=== PATIENT | female | born 1995 | race African-American/Black ===

== ENCOUNTER 2017-03-16 04:15 | Inpatient (IN) | payer OTHER ==
[2017-03-16] MEDS ORDERED: DEXTROSE 5%-LACTATED RINGERS 500 ML IV SCH (06:00)
[2017-03-16] MEDS ORDERED: DEXTROSE 5%-LACTATED RINGERS 1,000 ML IV SCH (07:00)
[2017-03-16] MEDS ORDERED: PROMETHAZINE HCL 25 MG/1 ML VIAL IVPUSH ONE (07:10)
[2017-03-16] MEDS ORDERED: BUTORPHANOL TARTRATE 1 MG/ML VIAL IVPB ONE (07:10)
[2017-03-16] MEDS: ELECTROLYTE-148 SOLN 1,000 ML IV SCH ×3 (07:15→23:20)
--- NOTE | 2017-03-16 07:51 | HP ---
Past Medical History - Primary Care Physician PCP:: Marvin Jeffers - Admission Chief Complaint: 22 yo P0 @ 39.5wks with regular contractions since 8pm 03/15/17 , no VB, no LOF, + FM; She had 3min FHR deceleration when evaluated in triage. History of Present Illness: 1. Late registrant to [facility], but had firts trimester screening 2. History 20-22wk D&E - 2011 3. History abnormal PAP - normal this 4. Excessive weight gain 38lb, GCT 75, very small maternal bone structure - EFW 7lb by Teofilo, 02/18/17 - 2751 on 5. VZV - Not immune - vaccinate 6. Used Marijuana History Source: Patient Limitations to Obtaining History: No Limitations - Past Medical History ...: 2 ...Para: 0 ...Term: 0 ...: 0 ...Spon : 0 ...Induced : 1 ...LMP: 06/11/16 ... Weeks Gestation by Dates: 39.5 ...EDC by Dates: 03/18/17 - Past Surgical History Past Surgical History: Yes: None Hx Myomectomy: No Hx Transabdominal Cerclage: No - Smoking History Have you smoked in the past 12 months: No - Alcohol/Substance Use Hx Alcohol Use: No Home Medications - Allergies Allergies/Adverse Reactions: Allergies Allergy/AdvReac Type Severity Reaction Status Date / Time No Known Allergies Allergy Verified 03/16/17 05:45 - Home Medications Home Medications: Ambulatory Orders [id number]/Iron Fumarate/FA/Dss [ 19 Tablet] 1 each PO DAILY 03/16/17 Review of Systems - Review of Systems Constitutional: reports: No Symptoms Eyes: reports: No Symptoms HENT: reports: No Symptoms Neck: reports: No Symptoms Cardiovascular: reports: No Symptoms Respiratory: reports: No Symptoms Gastrointestinal: reports: No Symptoms Genitourinary: reports: Pain (contractions, mild) Breasts: reports: No Symptoms Reported Musculoskeletal: reports: No Symptoms Integumentary: reports: No Symptoms Neurological: reports: No Symptoms Endocrine: reports: No Symptoms Hematology/Lymphatic: reports: No Symptoms Psychiatric: reports: No Symptoms Physical Exam - Maternity Vital Signs: Vital Signs Temperature 98.0 F 03/16/17 05:50 Pulse Rate 54 L 03/16/17 05:50 Respiratory Rate 18 03/16/17 05:50 Blood Pressure 128/78 03/16/17 05:50 O2 Sat by Pulse Oximetry (%) Constitutional: Yes: Well Nourished Eyes: Yes: WNL HENT: Yes: WNL Neck: Yes: WNL Cardiovascular: Yes: WNL Lungs: Clear to auscultation Breast(s): Yes: WNL - Abdominal Exam/OB Fundal Height: 39 Number of Fetuses: Single Presentation: Vertex Contractions: Yes Regularity: Regular Intensity: Mild/Mod Monitor Mode: External Heart Rate (range): 140' Mod varriability, + accels, one 3min decel Heart Rate Location: [facility] Category: II Accelerations: Uniform Decelerations: Prolonged (3min with good return to baseline) - Vaginal Exam/OB Vaginal Bleediing: No Speculum Exam: No Dilatation (cm): closed Effacement (%): long Amniotic Membrane Status: Intact Presentation: Vertex/Position Station: -3 - Physical Exam Musculoskeletal: Yes: WNL Extremities: Yes: WNL Integumentary: Yes: WNL ...Motor Strength: WNL Psychiatric: Yes: WNL Assessment/Plan 22yo P0 @ 39 weeks with Category 2 FHR, but currently reassuring FHR admit to L&D for Category 2 FHR at term, regular ctxns IVF, theraputic rest with Stadol/Phenergan, routine admit labs Small maternal frame/pelvis, possible CPD will reevaluate pelvic adequacy when more relaxed
[2017-03-16 08:09] VITALS: BMI 25.2
[2017-03-16 08:20] LABS: BASOPHIL 0.3 % (0-2.0); EOSINOPHIL 1.3 % (0-4.5); MCH 27.7 pg (25.7-33.7); MCHC 32.9 g/dl (32.0-36.0); MEAN CELL VOLUME 84.2 fl (80-96); NEUTROPHILS 56.4 % (42.8-82.8); PLATELET COUNT 114 K/MM3 (134-434); RDW 14.2 % (11.6-15.6); WHITE BLOOD COUNT 9.3 K/mm3 (4.0-10.0)
[2017-03-16 08:27] LABS: INR 0.95 (0.82-1.09); PROTHROMBIN TIME (PATIENT) 10.4 SEC (9.98-11.88)
[2017-03-16 08:30] LABS: ACTIVATED PTT 34.7 SECONDS (26.9-34.4)
[2017-03-16 08:53] LABS: ANION GAP 10 (8-16); CALCIUM 7.8 mg/dL (8.5-10.1); CO2 22 mmol/L (21-32); CREATININE 0.5 mg/dL (0.55-1.02); GLUCOSE,RANDOM 88 mg/dL (74-106)
[2017-03-16] MEDS ORDERED: TUBERCULIN PPD 5 TU/0.1ML SYRINGE (IN PATIENT USE ONLY) ID ONE (09:00)
[2017-03-16 14:17] LABS: URINE MARIJUANA THC NEGATIVE ng/ml (CUTOFF=50)
[2017-03-16] MEDS ORDERED: DINOPROSTONE 10 MG VAGINAL SUPPOSITORY VG ONE (19:45)
[2017-03-17] MEDS: ELECTROLYTE-148 SOLN 1,000 ML IV SCH (08:00)
--- NOTE | 2017-03-17 09:44 | PN ---
Progress Note, Physician Chief Complaint: 22 yo P0 @ 39.6wks now she has been in prodromal labor for 36hr, now s/p Cervidil with unchanged cervical exam, and periods of Category 2 FHR; She is declining further YAQUELIN - Current Medication List Current Medications: Active Medications Parenteral Electrolytes (Plasma-Lyte 148 -) 1,000 mls @ 100 mls/hr IV ASDIR YULIA Last Admin: 03/17/17 08:00 Dose: 100 mls/hr - Objective Vital Signs: Vital Signs Temperature 97.8 F 03/17/17 08:00 Pulse Rate 57 L 03/17/17 08:00 Respiratory Rate 20 03/17/17 08:00 Blood Pressure 123/66 03/17/17 08:00 O2 Sat by Pulse Oximetry (%) Constitutional: Yes: Well Nourished Eyes: Yes: WNL HENT: Yes: WNL Neck: Yes: WNL Cardiovascular: Yes: WNL Respiratory: Yes: WNL Gastrointestinal: Yes: WNL, Normal Bowel Sounds Genitourinary: Yes: WNL (cervix is long/closed/posterior) Breast(s): Yes: WNL Musculoskeletal: Yes: WNL Extremities: Yes: WNL Edema: No Integumentary: Yes: WNL Neurological: Yes: WNL ...Motor Strength: WNL Psychiatric: Yes: WNL Additional Findings/Remarks: FHR 140s good BTB variability, + accels, no decels Category 1 FHR Labs: CBC, BMP 03/16/17 08:11 03/16/17 08:11 INR, PTT INR 0.95 (0.82-1.09) 03/16/17 08:11 Assessment/Plan 22yo P0 @ 39.6 weeks with Category 2 FHR, but currently reassuring FHR Small maternal frame/pelvis, possible CPD Unfavorable cervix after Cervidil and prodromal labor Declining further YAQUELIN Risks of c/s discussed with patient including infection, bleeding, injury to bowel, bladder, vessels, hysterectomy, possible complications with future pregnancies
[2017-03-17] MEDS ORDERED: morphine SULFATE/Preservative Free 0.5 MG/ML (1cc Syringe) SPIN ONE (09:53)
[2017-03-17] MEDS ORDERED: ONDANSETRON 4 MG/2 ML VIAL IVPB PRN (09:57)
[2017-03-17] MEDS ORDERED: METHYLERGONOVINE MALEATE 0.2 MG/1 ML AMP IM PRN (11:37)
[2017-03-17] MEDS ORDERED: diphenhydrAMINE HCL 25 MG CAPSULE (FP) PO PRN (11:37)
[2017-03-17] MEDS ORDERED: oxyCODONE HCL 5 MG TABLET PO PRN (11:37)
[2017-03-17] MEDS ORDERED: WITCH HAZEL 50% (TUCKS) 40 PAD/JAR PAD TP PRN (11:37)
[2017-03-17] MEDS ORDERED: IBUPROFEN 600 MG TABLET (FP) PO PRN (11:37)
[2017-03-17] MEDS ORDERED: BENZOCAINE 20% 57 GM BOTTLE TP PRN (11:37)
[2017-03-17] MEDS ORDERED: BENZOCAINE 28 GM HEMORRHOIDAL OINTMENT PR PRN (11:37)
--- NOTE | 2017-03-17 11:37 | PN ---
Delivery - Delivery Section: Primary, Low Flap Transverse (Failed Induction of labor, Cefalopelvic disproportion) Type of Anesthesia: Spinal Episiotomy/Laceration: None EBL (cc): 700 Delivery, Single - Stages of Labor Date of Delivery: 03/17/17 Time of Delivery: 10:12 Date Placenta Delivered: 03/17/17 Time Placenta Delivered: 10:13 Placenta: Yes: Expressed, Normal Configuration - Condition of Infant Blanket Folder/Pulp And Paper Tester Present: Yes Infant Gender: Male Position: Right, OT - 1 Minute Total Score: 9 5 Minutes Total Score: 9 - Feeding Plan Initial Plan: Elected not to breastfeed exclusively throughout hospitalization Benefits of Exclusively reinforced: Yes Remarks - Remarks Remarks: 22yo P0 @ 39.6wks failed IOL, CPD EBL 700cc Fluids 1000cc UO 150cc
[2017-03-17] MEDS ORDERED: OXYTOCIN 20 UNITS in 0.9% NS 1,000 ML IV SCH (11:45)
[2017-03-17] MEDS: IBUPROFEN 800 MG/8 ML IJ IVPB PRN (12:45)
[2017-03-17] MEDS: CEFAZOLIN (PRE-DOCKED) 50 ML IVPB SCH (17:23)
[2017-03-18] MEDS: IBUPROFEN 800 MG/8 ML IJ IVPB PRN (00:33)
[2017-03-18] MEDS: DEXTROSE 5%-LACTATED RINGERS 1,000 ML IV SCH (00:34)
[2017-03-18] MEDS: CEFAZOLIN (PRE-DOCKED) 50 ML IVPB SCH (01:44)
[2017-03-18] MEDS: IBUPROFEN 600 MG TABLET (FP) PO PRN ×3 (06:39→18:50)
[2017-03-18] MEDS: ACETAMINOPHEN 325 MG TABLET (FP) PO PRN ×3 (06:39→18:50)
[2017-03-18 07:57] LABS: BASOPHIL 0.3 % (0-2.0); EOSINOPHIL 0.3 % (0-4.5); MCH 27.1 pg (25.7-33.7); MCHC 32.2 g/dl (32.0-36.0); MEAN CELL VOLUME 84.1 fl (80-96); MEAN PLT VOLUME 11.1 fl (7.5-11.1); NEUTROPHILS 76.4 % (42.8-82.8); PLATELET COUNT 120 K/MM3 (134-434); RDW 14.4 % (11.6-15.6); WHITE BLOOD COUNT 13.2 K/mm3 (4.0-10.0)
--- NOTE | 2017-03-18 08:16 | PN ---
Post Progress Note - Subjective Subjective: 22yo P1 s/p 1' c/s for CPD, failed induction, inability to tolerate labor Post Day: 1 Type of Delivery: Primary C/S Vital Signs: Vital Signs Temperature 98.6 F 03/18/17 06:00 Pulse Rate 76 03/18/17 06:00 Respiratory Rate 18 03/18/17 07:00 Blood Pressure 120/76 03/18/17 06:00 O2 Sat by Pulse Oximetry (%) 99 03/17/17 12:00 Breast Exam: Yes: Soft Uterus: Yes: Fundus Firm Incision: Yes: Dressing dry and intact Abdomen/GI: Yes: Abdomen soft Lochia: Yes: Rubra Lochia, amount: Small Perineum: Yes: Intact Activity: Other (in bed) - Labs Labs: CBC WBC 9.3 K/mm3 (4.0-10.0) 03/16/17 08:11 RBC 3.76 M/mm3 (3.60-5.2) 03/16/17 08:11 Hgb 10.4 GM/dL (10.7-15.3) L 03/16/17 08:11 Hct 31.6 % (32.4-45.2) L 03/16/17 08:11 MCV 84.2 fl (80-96) 03/16/17 08:11 MCHC 32.9 g/dl (32.0-36.0) 03/16/17 08:11 RDW 14.2 % (11.6-15.6) 03/16/17 08:11 Plt Count 114 K/MM3 (134-434) L 03/16/17 08:11 MPV 11.0 fl (7.5-11.1) 03/16/17 08:11 Neutrophils % 56.4 % (42.8-82.8) 03/16/17 08:11 Lymphocytes % 31.7 % (8-40) 03/16/17 08:11 Monocytes % 10.3 % (3.8-10.2) H 03/16/17 08:11 Eosinophils % 1.3 % (0-4.5) 03/16/17 08:11 Basophils % 0.3 % (0-2.0) 03/16/17 08:11 Assessment/Plan 22yo P1 s/p 1' c/s for CPD, failed induction, inability to tolerate labor doing well, VSS, Afibrile [place] ambulation Monitor voiding Rh+ no need for Rhogam Baby boy circumcised
[2017-03-18] MEDS ORDERED: BISACODYL 10 MG SUPP.RECT RC PRN (11:37)
[2017-03-18] MEDS: SIMETHICONE 80 MG TAB.CHEW (FP) PO PRN ×2 (13:04→18:49)
--- NOTE | 2017-03-18 15:24 | PN ---
Progress Note (short form) - Note Progress Note: POD #1 - s/p under spinal anesthesia with duramorph. Pt. doing well, resting comfortably in bed. No complaints. Good pain control. No apparent anesthetic complications noted. Continue current care.
[2017-03-19] MEDS: SIMETHICONE 80 MG TAB.CHEW (FP) PO PRN ×2 (01:04→17:17)
[2017-03-19] MEDS: ACETAMINOPHEN 325 MG TABLET (FP) PO PRN ×3 (01:05→17:17)
[2017-03-19] MEDS: IBUPROFEN 600 MG TABLET (FP) PO PRN ×3 (01:05→17:18)
--- NOTE | 2017-03-19 07:02 | PN ---
Progress Note (short form) - Note Progress Note: pod 2 no dizziness, no excess vaginal bleeding Last Vital Signs Temp Pulse Resp BP Pulse Ox 98.0 F 72 18 117/59 99 03/18/17 22:00 03/18/17 22:00 03/18/17 22:00 03/18/17 22:00 03/17/17 12:00 abdomen soft, no distension. no cva incision dry, clean no calf tenderness impression pod 1 anemia . asymptomatic plan iron vit , advance diet
--- NOTE | 2017-03-19 07:27 | OP ---
DATE OF OPERATION: 03/17/2017 PREOPERATIVE DIAGNOSIS: A 22-year-old para 0 at 39 weeks and 6 days with failed induction of labor, cephalopelvic disproportion. POSTOPERATIVE DIAGNOSIS: A 22-year-old para 0 at 39 weeks and 6 days with failed induction of labor, cephalopelvic disproportion. PROCEDURE: Primary low-segment transverse section. SURGEON: Jigna Rehman MD FLOOR WORKER: Antonina Shaw MD DESCRIPTION OF THE OPERATIVE PROCEDURE: After assuring informed consent, patient was brought to the operating room, placed in the supine position with left lateral tilt. After adequate spinal anesthesia was achieved, abdomen was prepped and draped in sterile fashion. A Pfannenstiel skin incision was made with the scalpel, carried down to the level of fascia with Bovie cautery, dissected fascia bilaterally with Bovie cautery, and dissected of the rectus abdominis muscle inferiorly and superiorly with Bovie cautery. The rectus abdominis muscle was split in the midline down to the symphysis pubis. Peritoneum was identified, tented, and entered bluntly with good visualization of underlying organs. The bladder retracted with the lower edge of the [place]. Bilateral gutters were packed with lap sponges. The vesicouterine peritoneum tented and dissected off the anterior uterine wall with Holguin scissors, and bladder dissected inferiorly and retracted once again with lower edge of the [place]. Uterine incision was made with the scalpel. Lower uterine segment was found to be ballooning, and it was dissected bilaterally with bandage scissors. Infants head was found to be ballotable, not engaged, and delivered atraumatically. The rest of the infants body delivered atraumatically. Cord clamped and cut. Infant handed to awaiting pediatricians. Apgars were 9 at 1 minute and 9 at 5 minutes. Fetus was found to be in right occiput transverse position. It was male. Subsequently, placenta was expressed, found to be normal configuration. Uterus was cleared of clots and debris, and once bladder was retracted once more, uterine incision was repaired with 0 Biosyn in running locking suture and second imbricating layer was created with 0 Biosyn. Peritoneum was subsequently closed after all lap sponges removed, and intraabdominal contents was found to be hemostatic. Both the bilateral tubes and ovaries were visualized. Subsequently, the peritoneum was closed with 0 Biosyn, muscle was reapproximated at the midline with 0 Biosyn, fascia was closed with 0 Vicryl in running nonlocking fashion, and skin was closed with 4-0 Biosyn. ESTIMATED BLOOD LOSS: 500 mL. FLUIDS: Received by patient were 1000 of PlasmaLyte. URINE OUTPUT: 150 mL. CONDITION: Patient tolerated the procedure well. COUNTS: All instrument and sponge counts were correct x2. Patient was expressed from the vagina, and fundus was found to be firm. DISPOSITION: Patient was brought to the recovery room in stable condition. Eda [id number]
[2017-03-19] MEDS: ELECTROLYTE-148 SOLN 1,000 ML IV SCH (19:37)
[2017-03-19] MEDS: DEXTROSE 5%-LACTATED RINGERS 1,000 ML IV SCH (19:37)
[2017-03-19] MEDS ORDERED: SENNOSIDES/DOCUSATE COMBO (SENNA PLUS) TABLET (UD) PO PRN (22:00)
[2017-03-20] MEDS: SIMETHICONE 80 MG TAB.CHEW (FP) PO PRN (02:54)
[2017-03-20] MEDS: ACETAMINOPHEN 325 MG TABLET (FP) PO PRN ×2 (02:54→11:46)
[2017-03-20] MEDS: IBUPROFEN 600 MG TABLET (FP) PO PRN ×2 (02:55→11:45)
[2017-03-20 08:17] LABS: BASOPHIL 0.3 % (0-2.0); EOSINOPHIL 1.4 % (0-4.5); MCH 27.6 pg (25.7-33.7); MCHC 32.9 g/dl (32.0-36.0); MEAN CELL VOLUME 84.1 fl (80-96); MEAN PLT VOLUME 10.8 fl (7.5-11.1); NEUTROPHILS 67.5 % (42.8-82.8); PLATELET COUNT 150 K/MM3 (134-434); RDW 14.7 % (11.6-15.6); WHITE BLOOD COUNT 9.9 K/mm3 (4.0-10.0)
--- NOTE | 2017-03-20 08:54 | PN ---
Post Progress Note - Subjective Subjective: Patient without acute complaints. Reports tolerating oral intake without nausea or vomiting. Ambulating without dizziness. Denies fevers or chills. Pain well controlled with oral pain medication. without difficulty. Passing flatus. Post Day: 3 Type of Delivery: Primary C/S Vital Signs: Vital Signs Temperature 97.9 F 03/19/17 22:00 Pulse Rate 69 03/19/17 22:00 Respiratory Rate 18 03/19/17 22:00 Blood Pressure 117/66 03/19/17 22:00 O2 Sat by Pulse Oximetry (%) 99 03/17/17 12:00 Breast Exam: Yes: Engorged Uterus: Yes: Fundus Firm, Fundus below umbilicus Incision: Yes: Sutures intact Abdomen/GI: Yes: Abdomen soft, Tender (incisional), Passing flatus. No: Abdominal Distention Lochia: Yes: Serosa Lochia, amount: Small Extremities: Yes: Calves non-tender. No: Edema Activity: Ambulating - Labs Labs: CBC WBC 9.9 K/mm3 (4.0-10.0) 03/20/17 07:15 RBC 2.79 M/mm3 (3.60-5.2) L 03/20/17 07:15 Hgb 7.7 GM/dL (10.7-15.3) L 03/20/17 07:15 Hct 23.5 % (32.4-45.2) L 03/20/17 07:15 MCV 84.1 fl (80-96) 03/20/17 07:15 MCHC 32.9 g/dl (32.0-36.0) 03/20/17 07:15 RDW 14.7 % (11.6-15.6) 03/20/17 07:15 Plt Count 150 K/MM3 (134-434) D 03/20/17 07:15 MPV 10.8 fl (7.5-11.1) 03/20/17 07:15 Neutrophils % 67.5 % (42.8-82.8) 03/20/17 07:15 Lymphocytes % 23.0 % (8-40) D 03/20/17 07:15 Monocytes % 7.8 % (3.8-10.2) 03/20/17 07:15 Eosinophils % 1.4 % (0-4.5) D 03/20/17 07:15 Basophils % 0.3 % (0-2.0) 03/20/17 07:15 Assessment/Plan 22 yo POD #3 s/p 1 CD, afebrile, vital signs stable, doing well 1. Continue routine postoperative care. 2. AM CBC with continued anemia, currently asymptomatic Precautions reviewed with patient Patient desires DC home today Plan to repeat CBC If stable, will DC home with precautions
[2017-03-20 09:37] VITALS: BP 124/78; PULSE 59; TEMP 98.8
[2017-03-20 10:42] LABS: MCH 27.6 pg (25.7-33.7); MCHC 32.9 g/dl (32.0-36.0); MEAN CELL VOLUME 83.6 fl (80-96); MEAN PLT VOLUME 10.5 fl (7.5-11.1); PLATELET COUNT 157 K/MM3 (134-434); RDW 14.9 % (11.6-15.6); WHITE BLOOD COUNT 10.3 K/mm3 (4.0-10.0)
--- NOTE | 2017-03-21 13:34 | PATH ---
Surgical Pathology Report Patient Name: MARTHA LOMELI Med. Rec. #: [id number] /Age/Gender: 1995 (Age: 22) / F Account: [id number] Location: [facility] OBS/[facility] [place] Taken: 03/17/2017 Received: 03/18/2017 Reported: 03/21/2017 Physicians: Jigna Rehman M.D. Specimen(s) Received PLACENTA Clinical History , 39.6 weeks IUP Failed induction, intolerance of labor, FTD Final Diagnosis PLACENTA, DELIVERY: FOCALLY DISRUPTED THIRD TRIMESTER PLACENTA WITH SUBCHORIONIC AND INTERVILLOUS FIBRIN DEPOSITION, THREE VESSEL UMBILICAL CORD AND UNREMARKABLE PLACENTAL MEMBRANES. Electronically Signed Honorio Rockwell M.D. Gross Description The specimen is received fresh labeled placenta and is a 418 gram, 15.0 x 14.0 x 2.3 cm. placenta with attached membranes and umbilical cord. The attached membranes are pizarro, translucent with focal opacities and insert marginally. The umbilical cord measures 35 cm. in length and averages 1.2 cm. in diameter. The cord inserts eccentrically, 3.5 cm. to the nearest margin. No true knots or strictures are identified. Cut surface of the umbilical cord reveals 3 vessels. The surface is isbell-blue with minimal fibrin deposition and appropriate caliber vessels. The maternal surface is red-brown with focal defects. Sectioning reveals red-brown, spongy parenchyma. No lesions are identified. Director Of Epidemiology sections are submitted in three cassettes as follows: 1- membrane rolls and umbilical cord; 2-3- full thickness sections of placenta. 03/20/[address] [facility]03/20/2017
== END 2017-03-20 13:40 | disposition home or self-care (01) | DRG 540 ==
LOC: JDEL 04:15 → EDBD 04:15 → JLDR 06:38 → J3W 03-17 12:35
PROVIDERS: ADMIT Obstetrics & Gynecology; ATTEND Obstetrics & Gynecology
PROC: 3E0P7GC Introduction of Other Therapeutic Substance into Female Reproductive, Via Natural or Artificial Opening (ICD-10-PCS; 2017-03-16)
PROC: 10D00Z1 Extraction of Products of Conception, Low, Open Approach (ICD-10-PCS; principal; 2017-03-17)
DX: O33.9 Maternal care for disproportion, unspecified (principal); O62.0 Primary inadequate contractions; O99.013 Anemia complicating pregnancy, third trimester; Z3A.39 39 weeks gestation of pregnancy; Z37.0 Single live birth
CPT/HCPCS: 36415; 80048; 80307; 85025; 85027; 85610; 85730; 86593; 86850; 86900; 86901; 88307-TC